=== PATIENT | female | born 1995 | race Caucasian/White ===

== ENCOUNTER 2020-04-05 16:29 | Emergency (ER) | payer OTHER ==
[~2020-04-05] VITALS: Ht 167.6 cm; Wt 65.8 kg
[~2020-04-05 16:29] MED LIST: ALBU90OI INH; NAPR500 PO
[2020-04-05] MEDS ORDERED: CODACE30 PO (19:28)
[2020-04-05] MEDS ORDERED: IBU600 M1 PO (19:28)
== END 2020-04-05 20:04 | disposition home or self-care (01) ==
LOC: ER 16:29
DX: S62.396A Other fracture of fifth metacarpal bone, right hand, initial encounter for closed fracture (principal); J45.909 Unspecified asthma, uncomplicated; Z88.0 Allergy status to penicillin; Z79.899 Other long term (current) drug therapy; W22.8XXA Striking against or struck by other objects, initial encounter
CPT/HCPCS: 29125; 73130; 99283-25; A9270